=== PATIENT | female | born 1955 | race Caucasian/White ===

== ENCOUNTER 2021-04-16 22:10 | Inpatient (IN) | payer OTHER, MEDICARE, MEDICAID ==
[~2021-04-16] VITALS: Ht 177.8 cm; Wt 86.0 kg
[2021-04-16] MEDS ORDERED: GABA-1201 PO (22:37)
[2021-04-16] MEDS ORDERED: PERTUSS(ACELL),DIPH,TET VAC/PF 0.5 ML SYRINGE IM. ONE (22:45)
[2021-04-16] MEDS ORDERED: HYDROCODONE/ACETAMINOPHEN 5-325 MG TABLET PO ONE (22:45)
[2021-04-16 23:12] LABS: BASOPHILS % (AUTO) 0.4 % (0.0-2.0); EOSINOPHILS % (AUTO) 0.5 % (1.0-6.0); HEMATOCRIT 36.6 % (36-46); HEMOGLOBIN 12.2 g/dL (12.0-16.0); LYMPHOCYTES # (AUTO) 1.1 K/uL (1.0-4.8); LYMPHOCYTES % (AUTO) 15.4 % (22.0-44.0); MEAN CORPUSCULAR HEMOGLOBIN 28.7 pg (26.0-34.0); MEAN CORPUSCULAR HGB CONC 33.3 G/dL (31.0-37.0); MEAN CORPUSCULAR VOLUME 86 fL (80-100); MONOCYTES # (AUTO) 0.7 K/uL (0.1-1.0); MONOCYTES % (AUTO) 10.3 % (2.0-9.0); NEUTROPHILS # (AUTO) 5.2 K/uL (1.8-7.7); NEUTROPHILS % (AUTO) 73.4 % (40.0-70.0); PLATELET COUNT (AUTO) 211 K/uL (150-450); RED BLOOD CELL COUNT(AUTO) 4.23 MIL/uL (4.00-5.20)
[2021-04-16 23:19] LABS: COVID AG,FIA SOURCE NASOPHARYNGEAL
[2021-04-16 23:33] LABS: ANION GAP 13 mmol/L (8-16); CALCIUM, TOTAL 9.4 mg/dL (8.8-10.5); CARBON DIOXIDE 28 mmol/L (22-29); CHLORIDE 95 mmol/L (98-107); CREATININE 0.78 mg/dL (0.60-1.30); GLOMERULAR FILTR. RATE CALC > 60 mL/min (>60); GLUCOSE,RANDOM 116 mg/dL (70-110); POTASSIUM 3.8 mmol/L (3.5-5.1); SODIUM SERUM 136 mmol/L (136-145); UREA NITROGEN, BLOOD 13 mg/dL (7-18)
[2021-04-16 23:38] LABS: ALANINE AMINOTRANSFERASE 14 U/L (12-78); ALBUMIN 3.3 g/dL (3.4-5.0); ALKALINE PHOSPHATASE 147 U/L (46-116); ASPARTATE AMINOTRANSFERASE 26 U/L (15-37); BILIRUBIN,TOTAL 1.2 mg/dL (0.1-1.0); CREATINE KINASE, TOTAL ONLY 49 U/L (26-192)
[2021-04-17] MEDS ORDERED: LORazepam 2 MG TABLET PO ONE (01:30)
[2021-04-17] MEDS ORDERED: ZOLPIDEM TARTRATE 10 MG TABLET PO PRN (03:30)
[2021-04-17] MEDS: LORazepam 2 MG TABLET PO PRN ×2 (09:06→17:25)
[2021-04-17] MEDS: HALOPERIDOL 5 MG TABLET PO PRN (17:24)
[2021-04-17] MEDS ORDERED: HYDROCODONE/ACETAMINOPHEN 5-325 MG TABLET PO ONE (20:30)
[2021-04-18] MEDS: LORazepam 2 MG TABLET PO PRN ×3 (02:18→12:38)
[2021-04-18 05:11] LABS: CHOL/HDL RATIO 3.7 (3.9-5.7)
[2021-04-18 08:33] LABS: EOSINOPHILS % (AUTO) 2.1 % (1.0-6.0); HEMATOCRIT 34.6 % (36-46); HEMOGLOBIN 11.5 g/dL (12.0-16.0); LYMPHOCYTES # (AUTO) 0.9 K/uL (1.0-4.8); MEAN CORPUSCULAR HEMOGLOBIN 28.7 pg (26.0-34.0); MEAN CORPUSCULAR HGB CONC 33.2 G/dL (31.0-37.0); MEAN CORPUSCULAR VOLUME 86 fL (80-100); MONOCYTES # (AUTO) 0.7 K/uL (0.1-1.0); MONOCYTES % (AUTO) 11.6 % (2.0-9.0); NEUTROPHILS # (AUTO) 4.1 K/uL (1.8-7.7); NEUTROPHILS % (AUTO) 69.3 % (40.0-70.0); PLATELET COUNT (AUTO) 200 K/uL (150-450); RED CELL DISTRIBUTION WIDTH 19.9 % (11.5-14.5)
[2021-04-18 08:39] LABS: CALCIUM, TOTAL 9.4 mg/dL (8.8-10.5); CREATININE 0.98 mg/dL (0.60-1.30); POTASSIUM 3.4 mmol/L (3.5-5.1)
[2021-04-18 08:44] LABS: ALBUMIN 3.3 g/dL (3.4-5.0); BILIRUBIN,TOTAL 0.9 mg/dL (0.1-1.0); TOTAL PROTEIN, SERUM 8.7 g/dL (6.4-8.2)
[2021-04-18] MEDS: HALOPERIDOL 5 MG TABLET PO PRN (12:38)
[2021-04-18] MEDS ORDERED: BACITRACIN 28 GM OINTMENT TP PRN (13:00)
[2021-04-18] MEDS ORDERED: ONDANSETRON HCL 4 MG TABLET PO PRN (13:00)
[2021-04-18] MEDS ORDERED: CloNIDine HCL 0.1 MG TABLET PO PRN (13:00)
[2021-04-18] MEDS ORDERED: DOCUSATE SODIUM 100 MG CAPSULE PO PRN (13:00)
[2021-04-18] MEDS ORDERED: MAGNESIUM HYDROXIDE SUSPENSION 30 ML UDCUP PO PRN (13:00)
[2021-04-18] MEDS ORDERED: LOPERAMIDE HCL 2 MG CAPSULE PO PRN (13:00)
[2021-04-18] MEDS ORDERED: MAG HYDROX/AL HYDROX/SIMETH ES 30 ML SUSPENSION UDCUP PO PRN (13:00)
[2021-04-18] MEDS ORDERED: PETROLATUM,WHITE 28 GM JELLY TP PRN (13:00)
[2021-04-18] MEDS ORDERED: OMEPRAZOLE 20 MG CAPSULE PO PRN (13:00)
[2021-04-18] MEDS ORDERED: ALBUTEROL SULFATE HFA 90 MCG/PUFF 8 GM INHALER IH PRN (13:00)
[2021-04-18] MEDS ORDERED: BENZOCAINE/MENTHOL LOZENGE PO PRN (13:00)
[2021-04-18] MEDS: CITALOPRAM HYDROBROMIDE 20 MG TABLET PO SCH (13:04)
[2021-04-18] MEDS: IBUPROFEN 600 MG TABLET PO PRN (13:04)
[2021-04-18 20:40] VITALS: BP 120/74
[2021-04-19] MEDS ORDERED: INFLUENZA VIRUS VACCINE QVS 2021-22 (6MO+)/PF 60 MCG/0.5 ML SYRINGE IM. ONE (00:45)
[2021-04-19] MEDS ORDERED: PNEUMOCOCCAL VACCINE POLYVALENT 0.5 ML VIAL [PPSV23] IM. ONE (00:45)
[2021-04-19] MEDS: LORazepam 2 MG TABLET PO PRN ×4 (01:13→21:02)
[2021-04-19] MEDS: IBUPROFEN 600 MG TABLET PO PRN ×3 (01:13→21:02)
[2021-04-19 04:03] VITALS: BP 143/76
[2021-04-19] MEDS: ACETAMINOPHEN 325 MG TABLET PO PRN ×2 (06:21→14:42)
[2021-04-19 07:18] LABS: AMPHET/METH SCREEN,URINE NEGATIVE (NEGATIVE); BARBITURATE SCREEN, URINE NEGATIVE (NEGATIVE); BENZODIAZEPINES SCREEN,URINE NEGATIVE (NEGATIVE); CANNABINOID SCREEN,URINE NEGATIVE (NEGATIVE); COCAINE SCREEN,URINE NEGATIVE (NEGATIVE); METHADONE SCREEN, URINE NEGATIVE (NEGATIVE); OPIATE SCREEN,URINE POSITIVE (NEGATIVE)
[2021-04-19 07:20] LABS: APPEARANCE,URINE CLEAR (CLEAR); BILIRUBIN,URINE NEGATIVE (NEGATIVE); GLUCOSE, URINE (UA) NEGATIVE (NEGATIVE); KETONES,URINE NEGATIVE (NEGATIVE); LEUKOCYTE ESTERASE ,URINE MODERATE (NEGATIVE); NITRATE,URINE NEGATIVE (NEGATIVE); OCCULT BLOOD,URINE NEGATIVE (NEGATIVE); PROTEIN,URINE NEGATIVE (NEGATIVE)
[2021-04-19 07:23] LABS: PHENCYCLIDINE SCREEN,URINE NEGATIVE (NEGATIVE)
[2021-04-19] MEDS: CITALOPRAM HYDROBROMIDE 20 MG TABLET PO SCH (08:10)
[2021-04-19 08:31] LABS: BACTERIA,URINE None Seen /HPF (None Seen); RBC,URINE None Seen /HPF (0-2)
[2021-04-19 08:52] VITALS: BP 123/73
[2021-04-19] MEDS ORDERED: POTASSIUM CHLORIDE 20 MEQ ER TABLET PO ONE (11:15)
[2021-04-19 12:13] VITALS: BP 147/83
[2021-04-19 16:08] VITALS: BP 141/77
[2021-04-19 20:58] VITALS: BP 124/78
[2021-04-19] MEDS: HYDROCODONE/ACETAMINOPHEN 5-325 MG TABLET PO PRN (21:43)
[2021-04-19] MEDS ORDERED: HYDROCODONE/ACETAMINOPHEN 5-325 MG TABLET PO PRN (21:45)
[2021-04-20 05:09] VITALS: BP 130/58
[2021-04-20 08:02] VITALS: BP 146/80
[2021-04-20] MEDS: HYDROCODONE/ACETAMINOPHEN 5-325 MG TABLET PO PRN ×3 (08:09→20:12)
[2021-04-20] MEDS: CITALOPRAM HYDROBROMIDE 20 MG TABLET PO SCH (08:09)
[2021-04-20] MEDS: ACETAMINOPHEN 325 MG TABLET PO PRN (09:47)
[2021-04-20] MEDS: LORazepam 2 MG TABLET PO PRN (09:47)
[2021-04-20 16:03] VITALS: BP 135/79
[2021-04-20 19:35] VITALS: BP 147/90
[2021-04-21] MEDS: ACETAMINOPHEN 325 MG TABLET PO PRN (00:13)
[2021-04-21] MEDS: LORazepam 2 MG TABLET PO PRN (00:13)
[2021-04-21] MEDS: HYDROCODONE/ACETAMINOPHEN 5-325 MG TABLET PO PRN (02:08)
[2021-04-21 04:36] VITALS: BP 143/79
[2021-04-21 08:07] VITALS: BP 124/74
[2021-04-21] MEDS: CITALOPRAM HYDROBROMIDE 20 MG TABLET PO SCH (08:35)
[2021-04-21 10:27] LABS: COVID AG,FIA SOURCE NASAL SWAB
== END 2021-04-21 11:25 | DRG 881 ==
LOC: EMS 22:13 → 6N 04-18 17:23
PROVIDERS: ADMIT Internal Medicine; ATTEND Internal Medicine
DX: F32.9 Major depressive disorder, single episode, unspecified (principal); R45.851 Suicidal ideations; X78.1XXA Intentional self-harm by knife, initial encounter; S61.511A Laceration without foreign body of right wrist, initial encounter; F41.9 Anxiety disorder, unspecified; Z96.651 Presence of right artificial knee joint; F22 Delusional disorders; Z20.822 Contact with and (suspected) exposure to COVID-19; Z79.899 Other long term (current) drug therapy; Z85.3 Personal history of malignant neoplasm of breast; Z88.0 Allergy status to penicillin; Z88.8 Allergy status to other drugs, medicaments and biological substances; Y93.89 Activity, other specified; Y92.89 Other specified places as the place of occurrence of the external cause; Y99.8 Other external cause status
CPT/HCPCS: 80053; 80061; 81001; 82550; 84132; 84484; 85025; 87086; 90715; 93005; 93970; 97162; 97166; 97167; 97535; 99285; G0480

== ENCOUNTER 2021-04-21 08:07 | Inpatient (IN) | payer OTHER, MEDICARE, MEDICAID ==
[~2021-04-21] VITALS: Ht 177.8 cm; Wt 85.5 kg
[~2021-04-21 08:07] MED LIST: GABA-1201 PO
[2021-04-21 13:05] VITALS: BP 144/64
[2021-04-21] MEDS: LORazepam 2 MG TABLET PO PRN ×2 (14:59→20:37)
[2021-04-21] MEDS ORDERED: LOPERAMIDE HCL 2 MG CAPSULE PO PRN (17:45)
[2021-04-21] MEDS ORDERED: ONDANSETRON HCL 4 MG TABLET PO PRN (17:45)
[2021-04-21] MEDS ORDERED: MAGNESIUM HYDROXIDE SUSPENSION 30 ML UDCUP PO PRN (17:45)
[2021-04-21] MEDS ORDERED: DOCUSATE SODIUM 100 MG CAPSULE PO PRN (17:45)
[2021-04-21] MEDS ORDERED: BACITRACIN 28 GM OINTMENT TP PRN (17:45)
[2021-04-21] MEDS ORDERED: PETROLATUM,WHITE 28 GM JELLY TP PRN (17:45)
[2021-04-21] MEDS ORDERED: CloNIDine HCL 0.1 MG TABLET PO PRN (17:45)
[2021-04-21] MEDS ORDERED: ALBUTEROL SULFATE HFA 90 MCG/PUFF 8 GM INHALER IH PRN (17:45)
[2021-04-21] MEDS ORDERED: BENZOCAINE/MENTHOL LOZENGE PO PRN (17:45)
[2021-04-21] MEDS ORDERED: OMEPRAZOLE 20 MG CAPSULE PO PRN (17:45)
[2021-04-21 17:53] VITALS: BP 123/75
[2021-04-21] MEDS: IBUPROFEN 600 MG TABLET PO PRN (17:53)
[2021-04-21] MEDS: ACETAMINOPHEN 325 MG TABLET PO PRN (20:37)
[2021-04-22 01:35] VITALS: BP 104/65
[2021-04-22] MEDS: ZOLPIDEM TARTRATE 10 MG TABLET PO PRN (01:44)
[2021-04-22 08:18] VITALS: BP 111/65
[2021-04-22] MEDS: CITALOPRAM HYDROBROMIDE 20 MG TABLET PO SCH (09:01)
[2021-04-22 09:04] VITALS: BP 117/67
[2021-04-22] MEDS: IBUPROFEN 600 MG TABLET PO PRN (09:08)
[2021-04-22] MEDS: LORazepam 2 MG TABLET PO PRN (09:08)
[2021-04-22 10:03] VITALS: BP 105/68
[2021-04-22] MEDS: HYDROCODONE/ACETAMINOPHEN 5-325 MG TABLET PO PRN (10:08)
[2021-04-22] MEDS: GABAPENTIN 300 MG CAPSULE PO SCH ×2 (13:54→16:13)
[2021-04-22 16:07] VITALS: BP 121/61
[2021-04-23 01:35] VITALS: BP 107/63
[2021-04-23] MEDS: HYDROCODONE/ACETAMINOPHEN 5-325 MG TABLET PO PRN ×4 (01:43→22:02)
[2021-04-23 04:10] VITALS: BP 110/66
[2021-04-23] MEDS: IBUPROFEN 600 MG TABLET PO PRN ×2 (04:15→13:20)
[2021-04-23 09:30] VITALS: BP 122/74
[2021-04-23] MEDS: GABAPENTIN 300 MG CAPSULE PO SCH ×3 (09:31→17:17)
[2021-04-23] MEDS: CITALOPRAM HYDROBROMIDE 20 MG TABLET PO SCH (09:31)
[2021-04-23 16:02] VITALS: BP 149/92
[2021-04-23 16:18] VITALS: BP 148/92
[2021-04-23] MEDS: LORazepam 2 MG TABLET PO PRN (19:01)
[2021-04-23 22:02] VITALS: BP 135/93
[2021-04-23] MEDS: ZOLPIDEM TARTRATE 10 MG TABLET PO PRN (22:24)
[2021-04-24] VITALS (8 sets, daily range): BP systolic 110–129; BP diastolic 57–79
[2021-04-24] MEDS: IBUPROFEN 600 MG TABLET PO PRN ×3 (02:37→16:04)
[2021-04-24] MEDS: HYDROCODONE/ACETAMINOPHEN 5-325 MG TABLET PO PRN ×4 (05:17→17:44)
[2021-04-24] MEDS: GABAPENTIN 300 MG CAPSULE PO SCH ×3 (09:02→17:03)
[2021-04-24] MEDS: CITALOPRAM HYDROBROMIDE 20 MG TABLET PO SCH (09:03)
[2021-04-24] MEDS: NYSTATIN 15 GM POWDER BOTTLE TP SCH (17:03)
[2021-04-24] MEDS: HALOPERIDOL 5 MG TABLET PO PRN (20:30)
[2021-04-24] MEDS: LORazepam 2 MG TABLET PO PRN (20:30)
[2021-04-25] VITALS (9 sets, daily range): BP systolic 116–127; BP diastolic 63–74
[2021-04-25] MEDS: HYDROCODONE/ACETAMINOPHEN 5-325 MG TABLET PO PRN ×4 (00:03→19:49)
[2021-04-25] MEDS: IBUPROFEN 600 MG TABLET PO PRN ×2 (03:04→17:06)
[2021-04-25] MEDS: NYSTATIN 15 GM POWDER BOTTLE TP SCH ×2 (08:50→16:52)
[2021-04-25] MEDS: CITALOPRAM HYDROBROMIDE 20 MG TABLET PO SCH (08:50)
[2021-04-25] MEDS: GABAPENTIN 300 MG CAPSULE PO SCH ×3 (08:50→16:51)
[2021-04-25] MEDS: ACETAMINOPHEN 325 MG TABLET PO PRN (09:09)
[2021-04-25] MEDS: MAG HYDROX/AL HYDROX/SIMETH ES 30 ML SUSPENSION UDCUP PO PRN (22:44)
[2021-04-25] MEDS: LORazepam 2 MG TABLET PO PRN (22:44)
[2021-04-25] MEDS: HALOPERIDOL 5 MG TABLET PO PRN (22:44)
[2021-04-26 01:42] VITALS: BP 115/68
[2021-04-26] MEDS: ZOLPIDEM TARTRATE 10 MG TABLET PO PRN (01:46)
[2021-04-26] MEDS: HYDROCODONE/ACETAMINOPHEN 5-325 MG TABLET PO PRN (04:08)
[2021-04-26 04:18] VITALS: BP 110/65
[2021-04-26] MEDS: CITALOPRAM HYDROBROMIDE 20 MG TABLET PO SCH (08:53)
[2021-04-26] MEDS: NYSTATIN 15 GM POWDER BOTTLE TP SCH ×2 (08:53→20:12)
[2021-04-26] MEDS: GABAPENTIN 300 MG CAPSULE PO SCH ×3 (08:53→20:12)
[2021-04-26 20:15] VITALS: BP 112/61
[2021-04-26] MEDS: IBUPROFEN 600 MG TABLET PO PRN (20:15)
[2021-04-27 04:10] VITALS: BP 123/75
[2021-04-27] MEDS: LORazepam 2 MG TABLET PO PRN ×2 (04:27→20:31)
[2021-04-27] MEDS: CITALOPRAM HYDROBROMIDE 20 MG TABLET PO SCH (08:26)
[2021-04-27] MEDS: GABAPENTIN 300 MG CAPSULE PO SCH ×3 (08:26→17:43)
[2021-04-27] MEDS: NYSTATIN 15 GM POWDER BOTTLE TP SCH ×2 (08:32→17:43)
[2021-04-27 09:00] VITALS: BP 104/68
[2021-04-27 16:00] VITALS: BP 133/76
[2021-04-28 01:35] VITALS: BP 119/66
[2021-04-28] MEDS: ZOLPIDEM TARTRATE 10 MG TABLET PO PRN ×2 (01:48→21:03)
[2021-04-28 08:05] VITALS: BP 164/73
[2021-04-28] MEDS: CITALOPRAM HYDROBROMIDE 20 MG TABLET PO SCH (08:09)
[2021-04-28] MEDS: GABAPENTIN 300 MG CAPSULE PO SCH ×3 (08:09→16:12)
[2021-04-28] MEDS: HYDROCODONE/ACETAMINOPHEN 5-325 MG TABLET PO PRN ×3 (08:10→22:54)
[2021-04-28] MEDS: LORazepam 2 MG TABLET PO PRN (10:13)
[2021-04-28] MEDS: NYSTATIN 15 GM POWDER BOTTLE TP SCH ×2 (11:36→16:12)
[2021-04-28 14:47] VITALS: BP 148/92
[2021-04-28 15:16] LABS: COVID AG,FIA SOURCE NASOPHARYNGEAL
[2021-04-28 16:42] VITALS: BP 157/91
[2021-04-29] VITALS (7 sets, daily range): BP systolic 108–139; BP diastolic 62–77
[2021-04-29] MEDS: LORazepam 2 MG TABLET PO PRN ×2 (00:57→22:35)
[2021-04-29] MEDS: HYDROCODONE/ACETAMINOPHEN 5-325 MG TABLET PO PRN ×3 (06:12→19:56)
[2021-04-29] MEDS: NYSTATIN 15 GM POWDER BOTTLE TP SCH ×2 (09:00→17:00)
[2021-04-29] MEDS: GABAPENTIN 300 MG CAPSULE PO SCH ×3 (09:54→16:56)
[2021-04-29] MEDS: CITALOPRAM HYDROBROMIDE 20 MG TABLET PO SCH (09:54)
[2021-04-29] MEDS: IBUPROFEN 600 MG TABLET PO PRN (16:56)
[2021-04-29] MEDS: HALOPERIDOL 5 MG TABLET PO PRN (22:35)
[2021-04-30 01:06] VITALS: BP 106/52
[2021-04-30] MEDS: HYDROCODONE/ACETAMINOPHEN 5-325 MG TABLET PO PRN ×2 (03:19→09:51)
[2021-04-30 03:20] VITALS: BP 121/58
[2021-04-30 08:19] VITALS: BP 112/52
[2021-04-30] MEDS: GABAPENTIN 300 MG CAPSULE PO SCH ×3 (08:38→16:33)
[2021-04-30] MEDS: CITALOPRAM HYDROBROMIDE 20 MG TABLET PO SCH (08:38)
[2021-04-30] MEDS: NYSTATIN 15 GM POWDER BOTTLE TP SCH ×2 (09:00→17:38)
[2021-04-30 09:50] VITALS: BP 130/80
[2021-04-30] MEDS: IBUPROFEN 600 MG TABLET PO PRN (12:20)
[2021-04-30] MEDS: LORazepam 2 MG TABLET PO PRN (12:50)
[2021-04-30 16:00] VITALS: BP 141/95
[2021-04-30] MEDS: MAG HYDROX/AL HYDROX/SIMETH ES 30 ML SUSPENSION UDCUP PO PRN (21:43)
[2021-05-01 02:00] VITALS: BP 127/67
[2021-05-01] MEDS: HYDROCODONE/ACETAMINOPHEN 5-325 MG TABLET PO PRN ×2 (02:00→11:19)
[2021-05-01] MEDS: IBUPROFEN 600 MG TABLET PO PRN (04:21)
[2021-05-01] MEDS: GABAPENTIN 300 MG CAPSULE PO SCH ×3 (08:33→16:25)
[2021-05-01] MEDS: CITALOPRAM HYDROBROMIDE 20 MG TABLET PO SCH (08:33)
[2021-05-01 08:48] VITALS: BP 101/60
[2021-05-01] MEDS: NYSTATIN 15 GM POWDER BOTTLE TP SCH ×2 (08:52→17:00)
[2021-05-01 11:00] VITALS: BP 129/74
[2021-05-01 12:20] VITALS: BP 118/68
[2021-05-01 17:04] VITALS: BP 123/73
[2021-05-02] VITALS (7 sets, daily range): BP systolic 111–167; BP diastolic 63–93
[2021-05-02] MEDS: ZOLPIDEM TARTRATE 10 MG TABLET PO PRN ×2 (00:35→23:47)
[2021-05-02] MEDS: HYDROCODONE/ACETAMINOPHEN 5-325 MG TABLET PO PRN ×3 (05:05→19:31)
[2021-05-02] MEDS: CITALOPRAM HYDROBROMIDE 20 MG TABLET PO SCH (10:42)
[2021-05-02] MEDS: GABAPENTIN 300 MG CAPSULE PO SCH ×3 (10:42→16:34)
[2021-05-02] MEDS: NYSTATIN 15 GM POWDER BOTTLE TP SCH ×2 (10:43→16:34)
[2021-05-03 00:01] VITALS: BP 142/76
[2021-05-03] MEDS: GABAPENTIN 300 MG CAPSULE PO SCH ×3 (09:16→16:10)
[2021-05-03] MEDS: CITALOPRAM HYDROBROMIDE 20 MG TABLET PO SCH (09:16)
[2021-05-03 09:28] VITALS: BP 134/72
[2021-05-03] MEDS: NYSTATIN 15 GM POWDER BOTTLE TP SCH ×2 (10:13→16:10)
[2021-05-03 10:27] VITALS: BP 137/74
[2021-05-03] MEDS: HYDROCODONE/ACETAMINOPHEN 5-325 MG TABLET PO PRN ×2 (10:27→17:01)
[2021-05-03 16:23] VITALS: BP 148/99
[2021-05-03 17:01] VITALS: BP 135/80
[2021-05-04] VITALS (7 sets, daily range): BP systolic 105–159; BP diastolic 52–89
[2021-05-04] MEDS: LORazepam 2 MG TABLET PO PRN (02:15)
[2021-05-04] MEDS: ZOLPIDEM TARTRATE 10 MG TABLET PO PRN (02:54)
[2021-05-04] MEDS: ACETAMINOPHEN 325 MG TABLET PO PRN (06:28)
[2021-05-04] MEDS: GABAPENTIN 300 MG CAPSULE PO SCH ×3 (08:23→16:18)
[2021-05-04] MEDS: CITALOPRAM HYDROBROMIDE 20 MG TABLET PO SCH (08:23)
[2021-05-04] MEDS: HYDROCODONE/ACETAMINOPHEN 5-325 MG TABLET PO PRN ×2 (08:23→14:40)
[2021-05-04] MEDS: NYSTATIN 15 GM POWDER BOTTLE TP SCH ×2 (09:00→17:01)
[2021-05-04 12:25] LABS: COVID AG,FIA SOURCE NASOPHARYNGEAL
[2021-05-04] MEDS ORDERED: GABA-1181 PO ×2 (19:19→19:20)
[2021-05-04] MEDS ORDERED: CITA-144 PO (19:20)
[2021-05-04] MEDS ORDERED: NYST30OI6 TP (19:22)
== END 2021-05-04 19:55 | disposition home health service (06) | DRG 881 ==
LOC: 3EI 14:52
PROVIDERS: ADMIT Psychiatry & Neurology Psychiatry; ATTEND Psychiatry & Neurology Psychiatry
DX: F32.9 Major depressive disorder, single episode, unspecified (principal); F41.9 Anxiety disorder, unspecified; G47.00 Insomnia, unspecified; G89.29 Other chronic pain; I10 Essential (primary) hypertension; K59.00 Constipation, unspecified; Z20.822 Contact with and (suspected) exposure to COVID-19; M19.90 Unspecified osteoarthritis, unspecified site; Z96.651 Presence of right artificial knee joint; R26.9 Unspecified abnormalities of gait and mobility; Z79.899 Other long term (current) drug therapy; Z85.3 Personal history of malignant neoplasm of breast; Z88.0 Allergy status to penicillin; Z88.8 Allergy status to other drugs, medicaments and biological substances
CPT/HCPCS: 83036; 97110; 97162; 97165; 97530; 97535

== ENCOUNTER 2022-06-07 23:52 | Inpatient (IN) | payer OTHER, MEDICARE, MEDICAID ==
[~2022-06-07] VITALS: Ht 177.8 cm; Wt 76.6 kg
[~2022-06-07 23:52] MED LIST changes: +CITA-144 PO; +GABA-1181 PO; -GABA-1201 PO; +NYST30OI6 TP
[2022-06-08 00:19] LABS: BASOPHILS % (AUTO) 0.9 % (0.0-2.0); EOSINOPHILS % (AUTO) 1.5 % (1.0-6.0); HEMATOCRIT 41.4 % (36-46); HEMOGLOBIN 14.2 g/dL (12.0-16.0); LYMPHOCYTES # (AUTO) 1.7 K/uL (1.0-4.8); LYMPHOCYTES % (AUTO) 28.7 % (22.0-44.0); MEAN CORPUSCULAR HEMOGLOBIN 29.9 pg (26.0-34.0); MEAN CORPUSCULAR HGB CONC 34.3 G/dL (31.0-37.0); MEAN CORPUSCULAR VOLUME 87 fL (80-100); MONOCYTES # (AUTO) 0.5 K/uL (0.1-1.0); MONOCYTES % (AUTO) 8.8 % (2.0-9.0); NEUTROPHILS # (AUTO) 3.6 K/uL (1.8-7.7); NEUTROPHILS % (AUTO) 60.1 % (40.0-70.0); PLATELET COUNT (AUTO) 127 K/uL (150-450); RED BLOOD CELL COUNT(AUTO) 4.75 MIL/uL (4.00-5.20); RED CELL DISTRIBUTION WIDTH 17.3 % (11.5-14.5)
[2022-06-08 00:28] LABS: ANION GAP 14 mmol/L (8-16); CALCIUM, TOTAL 9.3 mg/dL (8.8-10.5); CARBON DIOXIDE 21 mmol/L (22-29); CHLORIDE 93 mmol/L (98-107); CREATININE 0.83 mg/dL (0.60-1.30); GLOMERULAR FILTR. RATE CALC > 60 mL/min (>60); GLUCOSE,RANDOM 85 mg/dL (70-110); POTASSIUM 4.3 mmol/L (3.5-5.1); SODIUM SERUM 128 mmol/L (136-145); UREA NITROGEN, BLOOD 12 mg/dL (7-18)
[2022-06-08 00:33] LABS: COVID AG,FIA SOURCE NASOPHARYNGEAL
[2022-06-08 00:34] LABS: ALANINE AMINOTRANSFERASE 15 U/L (12-78); ALBUMIN 4.2 g/dL (3.4-5.0); ALKALINE PHOSPHATASE 138 U/L (46-116); ASPARTATE AMINOTRANSFERASE 21 U/L (15-37); BILIRUBIN,TOTAL 1.2 mg/dL (0.1-1.0); TOTAL PROTEIN, SERUM 8.3 g/dL (6.4-8.2)
[2022-06-08] MEDS: SODIUM CHLORIDE 0.9% 1,000 ML IV ONE ×2 (01:18→01:32)
[2022-06-08] MEDS ORDERED: MELATONIN 5 MG TABLET PO ONE (04:15)
[2022-06-08] MEDS ORDERED: TraZODone HCL 50 MG TABLET PO ONE (05:45)
[2022-06-08] MEDS ORDERED: HALOPERIDOL 5 MG TABLET PO PRN (07:00)
[2022-06-08] MEDS ORDERED: ACETAMINOPHEN 325 MG TABLET PO ONE (13:30)
[2022-06-08 17:22] LABS: APPEARANCE,URINE CLEAR (CLEAR); BILIRUBIN,URINE NEGATIVE (NEGATIVE); GLUCOSE, URINE (UA) NEGATIVE (NEGATIVE); KETONES,URINE 40-60 mg/dL (NEGATIVE); LEUKOCYTE ESTERASE ,URINE TRACE (NEGATIVE); NITRATE,URINE NEGATIVE (NEGATIVE); OCCULT BLOOD,URINE NEGATIVE (NEGATIVE); PH,URINE 5.5 (5.0-8.0); PROTEIN,URINE NEGATIVE (NEGATIVE); SPECIFIC GRAVITIY, URINE 1.008 (1.003-1.030); UROBILINOGEN,URINE <=1.0 mg/dL (<=1.0)
[2022-06-08 17:32] LABS: AMPHET/METH SCREEN,URINE NEGATIVE (NEGATIVE); BARBITURATE SCREEN, URINE NEGATIVE (NEGATIVE); BENZODIAZEPINES SCREEN,URINE NEGATIVE (NEGATIVE); CANNABINOID SCREEN,URINE NEGATIVE (NEGATIVE); COCAINE SCREEN,URINE NEGATIVE (NEGATIVE); METHADONE SCREEN, URINE NEGATIVE (NEGATIVE); OPIATE SCREEN,URINE NEGATIVE (NEGATIVE); PHENCYCLIDINE SCREEN,URINE NEGATIVE (NEGATIVE)
[2022-06-08 17:33] LABS: BACTERIA,URINE None Seen /HPF (None Seen); RBC,URINE 0-2 /HPF (0-2)
[2022-06-08 17:34] LABS: WBC,URINE 0-2 /HPF (0-5)
[2022-06-08] MEDS ORDERED: KETOROLAC TROMETHAMINE 60 MG/2 ML VIAL IM ONE (17:45)
[2022-06-08] MEDS ORDERED: GABAPENTIN 300 MG CAPSULE PO ONE ×2 (17:45→21:00)
[2022-06-08] MEDS ORDERED: LORazepam 2 MG TABLET PO ONE (17:45)
[2022-06-08] MEDS: LORazepam 2 MG TABLET PO PRN (20:20)
[2022-06-08] MEDS: ZOLPIDEM TARTRATE 10 MG TABLET PO PRN (20:45)
[2022-06-09 00:57] VITALS: BP 126/94
[2022-06-09] MEDS: LORazepam 2 MG TABLET PO PRN ×2 (04:24→09:41)
[2022-06-09 08:00] VITALS: BP 154/108
[2022-06-09 09:00] VITALS: BP 138/89
[2022-06-09] MEDS: GABAPENTIN 300 MG CAPSULE PO SCH ×3 (09:33→18:13)
[2022-06-09] MEDS: ESCITALOPRAM OXALATE 10 MG TABLET PO SCH (12:19)
[2022-06-09] MEDS ORDERED: IBUPROFEN 400 MG TABLET PO PRN (13:45)
[2022-06-09] MEDS ORDERED: PETROLATUM,WHITE 28 GM JELLY TP PRN (13:45)
[2022-06-09] MEDS ORDERED: CloNIDine HCL 0.1 MG TABLET PO PRN (13:45)
[2022-06-09] MEDS ORDERED: NICOTINE 14 MG/24 HOUR PATCH TD PRN (13:45)
[2022-06-09] MEDS ORDERED: ONDANSETRON HCL 4 MG TABLET PO PRN (13:45)
[2022-06-09] MEDS ORDERED: ACETAMINOPHEN 325 MG TABLET PO PRN (13:45)
[2022-06-09] MEDS ORDERED: GuaiFENesin/D-METHORPHAN [SUGAR-FREE] 200-20MG/10 ML SYRUP UDCUP PO PRN (13:45)
[2022-06-09] MEDS ORDERED: DOCUSATE SODIUM 100 MG CAPSULE PO PRN (13:45)
[2022-06-09] MEDS ORDERED: ALBUTEROL SULFATE HFA 90 MCG/PUFF 8 GM INHALER IH PRN (13:45)
[2022-06-09] MEDS ORDERED: LOPERAMIDE HCL 2 MG CAPSULE PO PRN (13:45)
[2022-06-09] MEDS ORDERED: MAGNESIUM HYDROXIDE SUSPENSION 30 ML UDCUP PO PRN (13:45)
[2022-06-09] MEDS ORDERED: MAG HYDROX/AL HYDROX/SIMETH ES 30 ML SUSPENSION UDCUP PO PRN (13:45)
[2022-06-09 16:35] VITALS: BP 135/64
[2022-06-09] MEDS: ZOLPIDEM TARTRATE 10 MG TABLET PO PRN (22:16)
[2022-06-10 08:00] VITALS: BP 116/67
[2022-06-10] MEDS: GABAPENTIN 300 MG CAPSULE PO SCH ×2 (11:02→14:00)
[2022-06-10] MEDS: ESCITALOPRAM OXALATE 10 MG TABLET PO SCH (11:02)
[2022-06-10 16:30] VITALS: BP 120/70
[2022-06-10 16:46] VITALS: BP 124/78
[2022-06-10 17:46] VITALS: BP 118/76
== END 2022-06-10 18:00 | disposition left against medical advice (07) | DRG 885 ==
LOC: EMS 23:53 → 3EX 06-08 22:00
PROVIDERS: ADMIT Psychiatry & Neurology Child & Adolescent Psychiatry; ATTEND Psychiatry & Neurology Child & Adolescent Psychiatry
DX: F33.2 Major depressive disorder, recurrent severe without psychotic features (principal); R45.851 Suicidal ideations; F41.9 Anxiety disorder, unspecified; Z53.20 Procedure and treatment not carried out because of patient's decision for unspecified reasons; Z85.3 Personal history of malignant neoplasm of breast; Z88.0 Allergy status to penicillin; Z88.5 Allergy status to narcotic agent; Z90.13 Acquired absence of bilateral breasts and nipples; Z99.3 Dependence on wheelchair; Z88.8 Allergy status to other drugs, medicaments and biological substances
CPT/HCPCS: 80053; 81001; 81003; 85025; 96372; 99285; G0378; G0480; J1885; J7030; Q9967